=== PATIENT | female | born 2000 | race Two or more races ===

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

== ENCOUNTER 2023-07-08 04:52 | Emergency (ER) | payer OTHER ==
[~2023-07-08] VITALS: Ht 152.4 cm; Wt 55.8 kg
[~2023-07-08 04:52] MED LIST: ALBUTEROL2.5 MG/3 M IH; PREDNISOLO15 MG/5 ML PO; TUSICOF CAPLET1 EACH PO; ZITHROMAX500 MG PO
[2023-07-08] MEDS ORDERED: HYDROCODONE/CHLORPHEN P-STIREX 5 ML ML PO STA (07:59)
[2023-07-08] MEDS ORDERED: DEXAMETHASONE SODIUM PHOSPHATE 4 MG/ML VIAL IM STA (08:00)
== END 2023-07-08 10:30 | disposition home or self-care (01) ==
LOC: ER 04:53
DX: J40 Bronchitis, not specified as acute or chronic (principal); Z20.822 Contact with and (suspected) exposure to COVID-19

== ENCOUNTER → 2024-04-25 | Emergency (ER) | payer OTHER ==
[~2024-04-25] VITALS: Ht 152.4 cm; Wt 55.8 kg
[~2024-04-25] MED LIST changes: +ALBUTEROL SULFATE 3 ML/2.5 MG AMPUL.NEB IH ONE; +ALBUTEROL SULFATE 3 ML/2.5 MG AMPUL.NEB IH SCH; +BUDESONIDE 0.5 MG/2 ML AMPUL.NEB IH ONE; +BUDESONIDE 0.5 MG/2 ML AMPUL.NEB IH STA; +METHYLPREDNISOLONE SOD SUCC 40 MG VIAL IV SCH; +METHYLPREDNISOLONE SOD SUCC 40 MG VIAL ONE
[2024-04-25 18:11] LABS: HEMATOCRIT 37.7 % (36.0-45.00); HEMOGLOBIN 12.9 g/dL (12.0-15.00); MEAN CELL VOLUME 80.2 fL (80.00-100.00); MEAN CORPUSCULAR HEMOGLOBIN 27.5 pg (27.00-32.0); MEAN CORPUSCULAR HGB CONC 34.2 g/dl (32.0-36.0); PLATELET COUNT 272 K/uL (150-450); RED CELL DISTRIBUTION WIDTH 13.9 % (11.5-14.5)
== END | disposition home or self-care (01) ==
LOC: ER 14:50
DX: U07.1 COVID-19 (principal)